=== PATIENT | female | born 1945 | race Caucasian/White ===

== ENCOUNTER 2017-03-30 17:55 | Emergency (ER) | payer OTHER, MEDICAID ==
[2017-03-30 18:09] VITALS: RESP 16
--- NOTE | 2017-03-30 18:23 | C.PDOC ---
History Of Present Illness 71 yo female come in for evaluation of Right knee and Right ankle pain, swelling and bruising developed 2 weeks ago after sustained fall. Pt reports, was walking at home, slipped and fell down onto knees. Pt admits, was ambulatory after the fall without difficulty " gradually developed some swelling and bruising over knee". Otherwise, pt denies head injury, LOC, syncope , headache, dizziness, neck pain, CP, SOB, abd. pain, N/V, back pain,denies obvious deformity, weakness, sensory or vascular deficits to B/L lEs. Ambulate to ED, not in any apparent distress. Time Seen by Provider: 03/30/17 18:19 Chief Complaint (Nursing): Lower Extremity Problem/Injury History Per: Patient Past Medical History Reviewed: Historical Data, Nursing Documentation, Vital Signs Vital Signs: Last Vital Signs Temp 97.9 F 03/30/17 19:44 Pulse 80 03/30/17 19:44 Resp 16 03/30/17 19:44 BP 168/70 H 03/30/17 19:44 Pulse Ox 97 03/30/17 19:46 - Medical History PMH: Arthritis, Diabetes, HTN, Hypercholesterolemia Other Surgeries: not contributory Family History: States: No Known Family Hx - Social History Hx Tobacco Use: No Hx Alcohol Use: No Hx Substance Use: No Review Of Systems Except As Marked, All Systems Reviewed And Found Negative. Constitutional: Negative for: Fever, Chills Eyes: Negative for: Vision Change ENT: Negative for: Ear Discharge, Nose Discharge Cardiovascular: Negative for: Chest Pain, Palpitations, Light Headedness Respiratory: Negative for: Cough, Shortness of Breath, SOB with Excertion, Pleuritic Pain Gastrointestinal: Negative for: Nausea, Vomiting, Abdominal Pain Genitourinary: Negative for: Incontinence Musculoskeletal: Positive for: Leg Pain, Foot Pain Skin: Positive for: Bruising Neurological: Negative for: Weakness, Numbness, Altered Mental Status, Headache , Dizziness Physical Exam - Physical Exam Appears: Well, Non-toxic, No Acute Distress Skin: Normal Color, Warm, No Rash Head: Atraumatic, Normacephalic Eye(s): bilateral: PERRL Nose: No Flaring, No Deformity, No Tenderness Oral Mucosa: Moist Lips: Normal Appearing Neck: Trachea Midline, No Midline Cervical Tenderness, No Paracervical Tenderness, No Step Off Deformity, Supple Chest: Symmetrical, No Deformity, No Tenderness Cardiovascular: Rhythm Regular Respiratory: No Decreased Breath Sounds, No Accessory Muscle Use, No Rales, No Rhonchi, No Stridor, No Wheezing Gastrointestinal/Abdominal: Soft, No Tenderness, No Distention, No Guarding Back: No CVA Tenderness Extremity: Normal ROM (mild discomfort on Right knee flexion.), Tenderness ( moderate tenderness, edema and erythema overlying Right patella. Mild trazce ecchymoses over medial and lateral malleolus of Right ankle withut edema. no deformity, No neurovascular deficits Right foot.), No Calf Tenderness (B/L), Capillary Refill (less than 2sec to Right foot), No Deformity Neurological/Psych: Oriented x3, Normal Speech, Normal Motor, Normal Sensation, Normal Reflexes ED Course And Treatment O2 Sat by Pulse Oximetry: 97 Pulse Ox Interpretation: Normal - Other Rad Right knee X-Ray: Interpreted by Me, Viewed By Me Interpretation: (+)severe DJD, no acute fx or dislocation Progress Note: On re-evaluation, pt is afebrile, hemodynamicaly stable. Non- toxic. Head: AT/NC. NEck: (-) midline tenderness. RLE: exam c/w knee contusion. NO defomrity, no neurovascular deficits. Xray review (-) acute fx or dislocation. KNee immobilizer applied to Right knee. Pt advised and ref. to F/U with Ortho in 2-3 days for re-eavl. return to ED if any worsening or new changes. Disposition Counseled Patient/Family Regarding: Diagnosis, Need For Followup, Rx Given - Disposition Referrals: Ezequiel Dubois MD [Staff Provider] - Disposition: HOME/ ROUTINE Disposition Time: 19:21 Condition: STABLE Additional Instructions: Knee immobilizer for 1-2 weeks Take medication as prescribed Follow up with PMD and Orthopedist in 2-3 days for re-evaluation. return to ED if any worsening or new changes. Prescriptions: traMADol [Ultram] 50 mg PO TID #7 tab Instructions: Ankle Sprain (ED), Knee Sprain (ED) Forms: [employer] (Turkmen) Print Language: MOZAMBICAN - Clinical Impression Clinical Impression: Knee sprain, Ankle sprain
[2017-03-30 19:44] VITALS: BP 168/70; PULSE 80; TEMP 97.9
[2017-03-30 19:45] VITALS: O2SAT 97
--- NOTE | 2017-03-31 10:41 | RAD ---
PROCEDURE: Right Ankle Radiographs. HISTORY: injury COMPARISON: None FINDINGS: BONES: No evidence of acute displaced fracture nor dislocation. The osseous structures including talar dome intact. . JOINTS: No significant osteoarthritis. Ankle mortise maintained. . Small plantar and tiny posterior calcaneal enthesophytes are present. SOFT TISSUES: Minor vascular calcifications. No radiopaque foreign bodies are identified OTHER FINDINGS: None. IMPRESSION: No evidence of acute displaced fracture nor dislocation. If symptoms persist or occult fracture suspected clinically recommend repeat radiographs 5-10 days as most fractures should become radiographically evident in this timeframe.
--- NOTE | 2017-03-31 10:43 | RAD ---
PROCEDURE: Right Knee Radiographs. HISTORY: injury COMPARISON: None. FINDINGS: BONES: No evidence of acute displaced fracture nor dislocation. JOINTS: Minor degenerative changes with small marginal lateral and medial osteophyte formation. Tiny posterior patellar osteophytes. Small anterior superior patella enthesophyte. JOINT EFFUSION: Trace suprapatellar joint effusion. OTHER FINDINGS: Vascular calcifications are present. IMPRESSION: No evidence of acute displaced fracture nor dislocation. If symptoms persist or occult fracture suspected clinically recommend repeat radiographs in 5-10 days as most fractures should become radiographically evident in this timeframe. Minor DJD with trace suprapatellar joint effusion.
== END 2017-03-30 19:54 | disposition home or self-care (01) ==
LOC: C.ER 17:55
DX: S83.91XA Sprain of unspecified site of right knee, initial encounter (principal); S93.401A Sprain of unspecified ligament of right ankle, initial encounter; W01.0XXA Fall on same level from slipping, tripping and stumbling without subsequent striking against object, initial encounter; Y93.01 Activity, walking, marching and hiking; Y92.009 Unspecified place in unspecified non-institutional (private) residence as the place of occurrence of the external cause

== ENCOUNTER 2017-09-15 07:36 | Day surgery (SDC) | payer OTHER ==
[2017-09-12 15:50] VITALS: BMI 29.6
[2017-09-15] MEDS ORDERED: Lactated Ringer's 500 ML IV SCH (09:15)
[2017-09-15] MEDS ORDERED: Propofol 10 mg/ml Inj (20 ML) ONE ×2 (09:22→09:23)
[2017-09-15] MEDS ORDERED: Atropine Sulfate 0.4 mg/ml (0.8mg/2ml) Syringe IV ONE (09:55)
[2017-09-15 10:23] VITALS: TEMP 97.8; O2SAT 100
[2017-09-15 10:39] VITALS: RESP 20
[2017-09-15 11:25] VITALS: BP 137/58; PULSE 68
== END 2017-09-15 11:05 | disposition home or self-care (01) ==
LOC: C.ENDO 07:36
PROVIDERS: ATTEND Internal Medicine
DX: Z12.11 Encounter for screening for malignant neoplasm of colon (principal); R14.0 Abdominal distension (gaseous); R10.13 Epigastric pain; I10 Essential (primary) hypertension; E11.9 Type 2 diabetes mellitus without complications; Z79.84 Long term (current) use of oral hypoglycemic drugs; K63.5 Polyp of colon; K57.30 Diverticulosis of large intestine without perforation or abscess without bleeding; K64.8 Other hemorrhoids; K44.9 Diaphragmatic hernia without obstruction or gangrene; K29.70 Gastritis, unspecified, without bleeding; K22.10 Ulcer of esophagus without bleeding; K31.89 Other diseases of stomach and duodenum
CPT/HCPCS: 43239; 45380; 82948; 88305; 88313; 88342; J2704; J7120

== ENCOUNTER 2017-12-16 21:16 | Emergency (ER) | payer OTHER ==
[2017-12-16 21:16] VITALS: BMI 29.6
--- NOTE | 2017-12-16 22:05 | C.PDOC ---
History Of Present Illness 72 year old female with PMHx of HTN presents to the ED c/o headache, elevated BP for the past 3 days. Patient denies any other complaints at this time. Time Seen by Provider: 12/16/17 22:02 Chief Complaint (Nursing): High Blood Pressure History Per: Patient History/Exam Limitations: no limitations Onset/Duration Of Symptoms: Days (3) Current Symptoms Are (Timing): Still Present Quality Of Symptoms: Asymptomatic Exacerbating Factor(s): Pos: None Recent travel outside of the [place]: No Additional History Per: Patient Past Medical History Reviewed: Historical Data, Nursing Documentation, Vital Signs Vital Signs: Last Vital Signs Temp 98.2 F 12/16/17 23:33 Pulse 78 12/16/17 23:33 Resp 20 12/16/17 23:33 BP 166/62 H 12/16/17 23:33 Pulse Ox 98 12/16/17 23:33 - Medical History PMH: Diabetes, HTN, Hypercholesterolemia Denies: Chronic Kidney Disease Surgical History: Cholecystectomy (1976), Endoscopy Family History: States: Unknown Family Hx - Social History Hx Tobacco Use: No Hx Alcohol Use: No Hx Substance Use: No - Immunization History Hx Tetanus Toxoid Vaccination: No Hx Influenza Vaccination: No Review Of Systems Except As Marked, All Systems Reviewed And Found Negative. Cardiovascular: Negative for: Chest Pain, Palpitations Physical Exam - Physical Exam Appears: Non-toxic, No Acute Distress Skin: Normal Color, Warm, Dry Head: Atraumatic, Normacephalic Eye(s): bilateral: Normal Inspection Nose: No Discharge, No Epistaxis Oral Mucosa: Moist Neck: Normal ROM, Supple Chest: Symmetrical Cardiovascular: Rhythm Regular, No Murmur Respiratory: Normal Breath Sounds, No Rales, No Rhonchi, No Wheezing Gastrointestinal/Abdominal: Soft, No Tenderness, No Guarding, No Rebound Extremity: Normal ROM, No Tenderness, No Swelling Neurological/Psych: Oriented x3, Normal Speech Gait: Steady ED Course And Treatment - Laboratory Results Result Diagrams: 12/16/17 22:19 12/16/17 22:19 ECG: Interpreted By Me, Viewed By Me ECG Interpretation: Normal Rate From EC (BPM) O2 Sat by Pulse Oximetry: 99 (ON RA) Pulse Ox Interpretation: Normal - CT Scan/US CT head Other Rad Studies (CT/US): Read By Radiologist, Radiology Report Reviewed CT/US Interpretation: FINDINGS: Brain: Unremarkable. No hemorrhage. No significant white matter disease. No edema. Ventricles: Unremarkable. No ventriculomegaly. Bones/joints: Unremarkable. No acute fracture. Soft tissues : Unremarkable. Sinuses: Unremarkable as visualized. No acute sinusitis. Mastoid air cells: Unremarkable as visualized. No mastoid effusion. IMPRESSION : No evidence of an acute intracranial abnormality. Medical Decision Making Medical Decision Making: Plan: * CT head * EKG * Labs * Tylenol 975 mg PO * UA ro htn emeregency vs urgency- labs imaging pending pt reassess b/p improve.d imaging labs unremarkable neuro intact. stable for dc. Disposition - Disposition Referrals: [facility] [Outside] [facility] [Outside] Disposition: HOME/ ROUTINE Disposition Time: 23:00 Condition: STABLE Additional Instructions: please follow up with your doctor/clinic. return to er with worsening smptoms or concerns. Instructions: Headache, Adult (DC) Forms: [employer] (Mozambican) - Clinical Impression Clinical Impression: Headache, High blood pressure - Scribe Statement The provider has reviewed the documentation as recorded by the Scribe Cory Hall All medical record entries made by the Scribe were at my direction and personally dictated by me. I have reviewed the chart and agree that the record accurately reflects my personal performance of the history, physical exam, medical decision making, and the department course for this patient. I have also personally directed, reviewed, and agree with the discharge instructions and disposition.
[2017-12-16 22:24] LABS: BASO # 0.1 K/uL (0.0-0.2); BASO % 0.6 % (0.0-2.0); EOS # 0.1 K/uL (0.0-0.7); EOS % 1.4 % (0.0-4.0); HEMOGLOBIN 11.4 g/dL (11.0-16.0); LYMPH # 2.9 K/uL (1.0-4.3); LYMPH % 29.2 % (20.0-40.0); MEAN CELL VOLUME 88.2 fL (81.0-99.0); MEAN CORPUSCULAR HEMOGLOBIN 30.3 pg (27.0-31.0); MEAN CORPUSCULAR HGB CONC 34.3 g/dL (33.0-37.0); MEAN PLATELET VOLUME 8.5 fL (7.2-11.7); MONO # 0.9 K/uL (0.0-0.8); MONO % 8.7 % (0.0-10.0); NEUT % 60.1 % (50.0-75.0); RBC 3.76 Mil/uL (3.80-5.20); RED CELL DISTRIBUTION WIDTH 14.9 % (11.5-14.5)
[2017-12-16 22:31] LABS: INR 0.9; PROTHROMBIN TIME 10.3 SECONDS (9.7-12.2)
[2017-12-16 22:36] LABS: ALB/GLOB RATIO 1.1 (1.0-2.1); ALT/SGPT 24 U/L (9-52); AST/SGOT 22 U/L (14-36); BLOOD UREA NITROGEN 33 mg/dL (7-17); CALCIUM 9.9 mg/dl (8.6-10.4); GFR AFRICAN-AMERICAN 53; GFR NON-AFRICAN AMERICAN 44
--- NOTE | 2017-12-16 23:07 | CT ---
EXAM: CT Head Without Intravenous Contrast CLINICAL HISTORY: 72 years old, female; Condition or disease; Headache; Headache not specified; Additional info: SCHULER TECHNIQUE: Axial computed tomography images of the head/brain without intravenous contrast. All CT scans at this facility use one or more dose reduction techniques, viz.: automated exposure control; ma/kV adjustment per patient size (including targeted exams where dose is matched to indication; i.e. head); or iterative reconstruction technique. COMPARISON: CT - HEAD W/O CONT 2011-08-26 22:12 FINDINGS: Brain: Unremarkable. No hemorrhage. No significant white matter disease. No edema. Ventricles: Unremarkable. No ventriculomegaly. Bones/joints: Unremarkable. No acute fracture. Soft tissues: Unremarkable. Sinuses: Unremarkable as visualized. No acute sinusitis. Mastoid air cells: Unremarkable as visualized. No mastoid effusion. IMPRESSION: No evidence of an acute intracranial abnormality.
[2017-12-16 23:36] VITALS: BP 166/62; PULSE 78; RESP 20; TEMP 98.2
[2017-12-16 23:56] VITALS: O2SAT 99
--- NOTE | 2017-12-19 17:05 | CARD ---
APPROVED REPORT EKG Measurement Heart [id number] <Conclusion> Normal sinus rhythm
== END 2017-12-16 23:33 | disposition home or self-care (01) ==
LOC: C.ER 21:16
DX: I10 Essential (primary) hypertension (principal); R51 Headache